=== PATIENT | female | born 1990 | race Caucasian/White ===

== ENCOUNTER 2018-11-07 09:55 | Emergency (ER) | payer OTHER, MEDICAID ==
[~2018-11-07] VITALS: Ht 170.2 cm; Wt 61.2 kg
[~2018-11-07 09:55] MED LIST: BACTRIM DS TAB1 EACH PO; KEFLEX500 M1 PO; KEFLEX500 MG PO
[2018-11-07] MEDS ORDERED: ZOFRAN ODT4 MG DISSOLVE (10:08)
[2018-11-07] MEDS ORDERED: BENTYL 10 MG CA10 M1 PO (10:08)
[2018-11-07 10:35] LABS: HEMATOCRIT 34.2 % (37.0-47.0); HEMOGLOBIN 11.3 gm/dL (12.0-15.0); MCH 26.4 pg (26.0-34.0); MPV 9.6 fl. (7.2-11.1); NUCLEATED RBCS 0 /100WBC; PLATELET COUNT* 323 thou/uL (150-400); RBC 4.28 mil/uL (4.20-5.00); RDW-CV 14.6 % (10.5-14.5); WBC 8.4 thou/uL (4.0-11.0)
[2018-11-07 10:39] LABS: ANION GAP 13 mmol/L (7-16); BUN 7 mg/dL (7-18); CALCIUM 8.6 mg/dL (8.5-10.1); CHLORIDE 95 mmol/L (98-107); CO2 25 mmol/L (21-32); CREATININE 0.8 mg/dL (0.6-1.3); GLUCOSE 115 mg/dL (70-99); SODIUM 133 mmol/L (136-145)
[2018-11-07 10:46] LABS: ALBUMIN 2.3 g/dL (3.4-5.0); ALKALINE PHOSPHATASE 82 U/L (46-116); SGOT 9 U/L (15-37); SGPT 10 U/L (30-65); TOTAL BILIRUBIN 0.7 mg/dL (<0.1-1.0); TOTAL PROTEIN 7.3 g/dL (6.4-8.2); TROPONIN-I LEVEL <0.06 ng/mL (<0.06)
[2018-11-07 10:48] LABS: POTASSIUM 2.5 mmol/L (3.5-5.1)
[2018-11-07 11:33] LABS: ABSOLUTE BASOPHILS 0.1 thou/uL (0.0-0.2); ABSOLUTE EOSINOPHILS 0.3 thou/uL (0.0-0.7); ABSOLUTE LYMPHOCYTES 0.8 thou/uL (0.8-5.3); ABSOLUTE NEUTROPHILS 6.3 thou/uL (1.6-8.1)
[2018-11-07 11:38] LABS: PLATELET ESTIMATE ADEQUATE
[2018-11-07 11:39] LABS: MICROCYTES 2+
[2018-11-07 12:29] LABS: URINE BLOOD 3+ (Negative); URINE CLARITY CLEAR; URINE COLOR YELLOW; URINE GLUCOSE-RANDOM NEGATIVE (Negative); URINE KETONES 1+ (Negative); URINE LEUKOCYTES-REFLEX NEGATIVE (Negative); URINE NITRITE-REFLEX NEGATIVE (Negative); URINE PROTEIN 1+ (Negative); URINE SPECIFIC GRAVITY 1.025 (1.005-1.030); URINE UROBILINOGEN 0.2 E.U./dl (0.2-1.0)
[2018-11-07 12:30] LABS: ICTOTEST (BILI CONFIRMATORY) Negative (Negative); URINE BILIRUBIN 1+ (Negative)
[2018-11-07 12:49] LABS: BACTERIA-REFLEX 1-9 Few /HPF (None Seen); CASTS None Seen /LPF (None Seen); CRYSTALS None Seen /LPF (None Seen); MUCUS 4-6 Moderate strn/LPF (None Seen); SQUAMOUS 4-10 Moderate /LPF (0-3); URINE WBC-REFLEX 0-5 Rare /HPF (0-5)
[2018-11-07] MEDS ORDERED: FLAGYL500 M1 PO (15:20)
[2018-11-07] MEDS ORDERED: CIPRO500 M1 PO (15:20)
[2018-11-07] MEDS ORDERED: K-DUR 20 MEQ T20 MEQ PO (15:38)
[2018-11-07 16:14] VITALS: BP 101/53
--- NOTE | 2018-11-08 13:47 | EKG ---
[place] [address] ELECTROCARDIOGRAM REPORT Name: MARIN BECK Room: [facility]#: [id number] Admission: 11/07/18 Attend Phys: Discharge: 11/07/18 Date of : 89 Report #: [id number] THIS REPORT FOR: //name// [facility] ED Test Date: 2018-11-07 Test Time: 10:36:36 Pat Name: MARIN BECK Department: Room: Gender: F Digital Designer: RADHA : 1990 Requested By: Sriram Canseco Order Number: [id number] MD: Jules Morris Measurements Intervals [place] Rate: 100 P: 44 [place]: 144 QRS: 66 QRSD: 98 T: -19 QT: 353 QTc: 456 Interpretive Statements Sinus tachycardia RSR' in V1 or V2, right VCD or RVH Borderline T abnormalities, inferior leads No previous ECG available for comparison Electronically Signed On 11-08-2018 13:47:33 CREW CLERK by Jules Morris [email or web address] <ELECTRONICALLY SIGNED> By: Jules Morris MD, [facility] 11/08/18 1347 [id number] Jules Morris MD, FACC /EPI
== END 2018-11-07 16:15 | disposition home or self-care (01) ==
LOC: M.ERS 09:55
PROVIDERS: Emergency Medicine Emergency Medical Services
DX: K52.9 Noninfective gastroenteritis and colitis, unspecified (principal); E87.6 Hypokalemia